=== PATIENT | female | born 1945 | race Hispanic/Latino ===

== ENCOUNTER → 2017-12-28 | Day surgery (SDC) | payer MEDICARE ==
[~2017-12-28] MED LIST: DIPRIVAN 10 MG/ML IV ONE; NACL 0.9% 1000 ML 1,000 ML IV SCH; PROVENTIL IH ONE; WATER FOR IRRIG STERILE IR ONE
--- NOTE | 2017-12-28 10:05 | Anesthesia Consultation ---
Anesthesia Consult and Med Hx Date of service: 12/28/17 - Airway Anesthetic Teeth Evaluation: Poor ROM Head & Neck: Adequate Mental/Hyoid Distance: Adequate Mallampati Class: Class II Intubation Access Assessment: Probably Good - Pulmonary Exam CTA: No (exp wheeze ) - Cardiac Exam Cardiac Exam: RRR - Pre-Operative Health Status ASA Pre-Surgery Classification: ASA3 Proposed Anesthetic Plan: MAC - Pulmonary Hx Smoking: Yes (Quit 6 years ago ) COPD: Yes Hx Pneumonia: Yes (admitted [facility] 09/2017) - Cardiovascular System Hx Coronary Artery Disease: Yes - Endocrine Hx Renal Disease: Yes (STAGE IV) - Hematic Hx Anemia: Yes (IRON DIFFICIENCY)
--- NOTE | 2017-12-28 10:16 | Anesthesia Day of Surgery ---
Anesthesia Day of Surgery - Day of Surgery Patient Examined: Yes Patient H&P Reviewed: Yes Patient is NPO: Yes
--- NOTE | 2017-12-28 10:33 | Short Stay Summary ---
Short Stay Documentation Date of service: 12/28/17 Narrative H&P: The patient presents for EGD to evaluate iron deficiency anemia due to suspected chronic blood loss. - History Past Medical History: other (multiple sclerosis, wheelchair bound. CKD.) Past Surgical History: No surgical history Social history: no significant social history, lives with family - Allergies and Medications Current Medications: Allergies No Known Allergies Allergy (Unverified 12/27/17 11:49) Active Medications Sodium Chloride (Nacl 0.9% 1000 Ml) 1,000 mls @ 50 mls/hr IV DIRECT LEO Last Admin: 12/28/17 09:53 Dose: 50 mls/hr - Physical exam General appearance: no acute distress, other (thin, chronically ill appearing, wheelchair bound) Integumentary: no rash, no growths HEENT: Atraumatic, PERRLA, EOMI, Mucous membr. moist/pink Lungs: Clear to auscultation, Normal air movement Breasts: deferred Heart: Regular rate, Normal S1, Normal S2, No murmurs Gastrointestinal: normoactive bowel sounds, no tenderness, no distended, no masses, no guarding, no hepatomegaly, no splenomegaly Female Genitourinary: deferred Rectal Exam: deferred Extremities: no ischemia, pulses intact, pulses symmetrical, No edema, normal temperature, normal color Neurological: Normal gait, Normal speech, Normal tone, Sensation intact - Brief post op/procedure progress note Date of procedure: 12/28/17 Post-op diagnosis: same Findings: see dictated note Estimated blood loss: none Pathology: list (stomach antrum biopsies) Specimen disposition: to lab Condition: stable - Disposition Condition at discharge: Good Disposition: DC-01 TO HOME OR SELFCARE - Discharge Diagnoses (1) Iron deficiency anemia due to chronic blood loss Status: Acute Short Stay Discharge Plan Activity: other (usual activities. No driving for 24 hours) Weight Bearing Status: Weight Bear as Tolerated Diet: regular Follow up with: PRIMARY CARE, [Primary Care Provider] - 7 Days
--- NOTE | 2017-12-28 10:40 | Operative Report ---
Operative Report Operative Report: Date of procedure: 12/28/2017 Procedure: Esophagogastroduodenoscopy with antral biopsies for H. pylori Preprocedure diagnosis: Iron deficiency anemia due to chronic blood loss Post procedure diagnosis: Moderately severe erosive duodenitis and erosive antral gastritis. Large hiatal hernia. Endoscopist: Dr. Mock Anesthesia: Monitored anesthesia care per anesthesia department Medications: ropofol per anesthesia]Estimated blood loss: [0] fr careful discussion of the nature and purpose of the procedure as well as details the technique risks benefits and alternatives consent was obtained. The patient was placed in the left lateral decubitus position and medicated per anesthesia. The tip of the Purple Binder EQ 570 video scope was passed per orum under direct vision into the esophagus and advanced into the stomach and descending duodenum. The descending duodenum is normal. The duodenal bulb revealed moderately severe erosive disease with no deep ulcers. The pylorus was symmetrical and normal. The scope was withdrawn into the stomach and the stomach then gently insufflated with air. The antrum revealed multiple punctate erosions and linear erosions. No deep ulcers are present. Biopsies were taken in the prepyloric antrum for H. pylori testing. The stomach was further insufflated and the scope was then retroflexed and partially withdrawn. The cardia, fundus, and body of the stomach were within normal limits except for the hiatus hernia seen in retroflexed view. The stomach was easily distensible. The scope was then withdrawn in the forward position. The esophagogastric junction was at [35 cm]. large hiatus hernia was present. The esophageal body was normal throughout. The procedure was was well tolerated and the patient was observed in recovery. Impressions: Large hiatus hernia which may be responsible for iron deficiency anemia. Moderately severe erosive duodenitis and gastritis. Plan: Await pathology. Begin omeprazole. Avoidance of nonsteroidal medications. Electronically signed: Cody Mock MD
[2017-12-28 11:03] VITALS: BP 126/51
--- NOTE | 2017-12-28 11:40 | Post Anesthesia Evaluation ---
- Post Anesthesia Evaluation Patient Participated: Yes Airway Patent: Yes Stable Respiratory Function: Yes Nausea/Vomiting: No Temp > 96.8F: Yes Pain Manageable: Yes Adequeate Hydration: Yes Anesthesia Complications: No
== END | disposition home or self-care (01) ==
LOC: GIO 08:50
PROVIDERS: ATTEND Internal Medicine Gastroenterology
DX: D50.0 Iron deficiency anemia secondary to blood loss (chronic) (principal); K29.50 Unspecified chronic gastritis without bleeding; K26.9 Duodenal ulcer, unspecified as acute or chronic, without hemorrhage or perforation; K21.9 Gastro-esophageal reflux disease without esophagitis; K44.9 Diaphragmatic hernia without obstruction or gangrene; I25.10 Atherosclerotic heart disease of native coronary artery without angina pectoris; J44.9 Chronic obstructive pulmonary disease, unspecified; I10 Essential (primary) hypertension; G35 Multiple sclerosis; M19.90 Unspecified osteoarthritis, unspecified site; Z79.899 Other long term (current) drug therapy; Z87.891 Personal history of nicotine dependence; Z98.890 Other specified postprocedural states
CPT/HCPCS: 43239; 88305; 88342; J2704; J7030